=== PATIENT | female | born 1940 | race Caucasian/White ===

== ENCOUNTER 2018-01-16 09:49 | Emergency (ER) | payer MEDICARE ==
[2018-01-16] MEDS ORDERED: CLINDAMYCIN IM SCH (10:45)
[2018-01-16] MEDS ORDERED: Clindamycin/D5W 600 MG in Premix Bag 1 BAG IVPB SCH (10:45)
[2018-01-16] MEDS ORDERED: PRE FILLED IM SCH (10:45)
== END 2018-01-16 11:15 | disposition home or self-care (01) ==
LOC: ERS 09:49
DX: K04.7 Periapical abscess without sinus (principal); I25.2 Old myocardial infarction; Z87.891 Personal history of nicotine dependence; Z79.899 Other long term (current) drug therapy; Z79.82 Long term (current) use of aspirin
CPT/HCPCS: 96372; J3490

== ENCOUNTER 2020-11-19 09:35 | Outpatient (CLI) | payer MEDICARE | END 2020-11-19 09:36 | disposition home or self-care (01) | LOC: CT 09:35 | PROVIDERS: ATTEND Internal Medicine Cardiovascular Disease | DX: I71.4 Abdominal aortic aneurysm, without rupture (principal); R91.1 Solitary pulmonary nodule; K76.89 Other specified diseases of liver; K57.30 Diverticulosis of large intestine without perforation or abscess without bleeding | CPT/HCPCS: 71275; 74174; 82565 ==

== ENCOUNTER 2020-12-17 11:05 | Outpatient (CLI) | payer MEDICARE | END 2020-12-17 11:06 | disposition home or self-care (01) | LOC: PET 11:05 | PROVIDERS: ATTEND Internal Medicine | DX: R91.1 Solitary pulmonary nodule (principal); J43.9 Emphysema, unspecified | CPT/HCPCS: 78815; A9552 ==

== ENCOUNTER 2020-12-23 09:09 | Day surgery (SDC) | payer MEDICARE ==
[2020-12-22 14:06] VITALS: BMI 24.3
[2020-12-23] MEDS ORDERED: Fentanyl 100 MCG/2 ML VIAL ONE (11:14)
[2020-12-23] MEDS ORDERED: SUGAMMADEX SODIUM 200 MG/2 ML VIAL ONE (11:14)
[2020-12-23] MEDS ORDERED: Ondansetron PF 4 MG/2 ML Vial ONE (11:39)
[2020-12-23] MEDS ORDERED: Rocuronium Bromide 10 MG/ML (10ML VIAL) ONE (11:39)
[2020-12-23] MEDS ORDERED: Dexamethasone 20 MG/5 ML VIAL ONE (11:39)
[2020-12-23] MEDS ORDERED: PHENYLEPHRINE-NS 100 MCG/ML 10 ML SYRINGE ONE (11:39)
[2020-12-23] MEDS ORDERED: Lidocaine 1% PF 5 ML VIAL ONE (11:39)
[2020-12-23] MEDS ORDERED: PROPOFOL 200 MG/20 ML VIAL ONE (11:39)
== END 2020-12-23 14:35 | disposition home or self-care (01) ==
LOC: SDC 09:09
PROVIDERS: ATTEND Internal Medicine
PROC: 07D78ZX Extraction of Thorax Lymphatic, Via Natural or Artificial Opening Endoscopic, Diagnostic (ICD-10-PCS; principal; 2020-12-23)
DX: C7A.1 Malignant poorly differentiated neuroendocrine tumors (principal); R91.1 Solitary pulmonary nodule; J43.2 Centrilobular emphysema; Z87.891 Personal history of nicotine dependence; Z79.82 Long term (current) use of aspirin; Z79.899 Other long term (current) drug therapy; Z88.0 Allergy status to penicillin; Z91.013 Allergy to seafood
CPT/HCPCS: 88173; 88305; 88341; 88342; J1100; J2405; J2704; J3010

== ENCOUNTER 2021-01-05 11:25 | Outpatient (CLI) | payer MEDICARE ==
[~2021-01-05 11:25] MED LIST: Iopamidol 370 76% 100 ML VIAL ONE
== END 2021-01-05 11:26 | disposition home or self-care (01) ==
LOC: CT 11:25
PROVIDERS: ATTEND Internal Medicine Hematology & Oncology
DX: C79.51 Secondary malignant neoplasm of bone (principal); C34.81 Malignant neoplasm of overlapping sites of right bronchus and lung; Z79.899 Other long term (current) drug therapy
CPT/HCPCS: 70470; Q9967

== ENCOUNTER 2021-01-14 08:11 | Day surgery (SDC) | payer MEDICARE ==
[2021-01-12 13:02] VITALS: BMI 21.2
[2021-01-14] MEDS ORDERED: Lidocaine 1% w/Epinephrine 1:100K 20 ML VIAL ONE (10:27)
[2021-01-14] MEDS ORDERED: Bupivacaine 0.25% 10 ML VIAL ONE (10:27)
[2021-01-14] MEDS ORDERED: Levofloxacin 500 mg/D5W 100 ml Premix Bag ONE (10:47)
[2021-01-14] MEDS ORDERED: Fentanyl 100 MCG/2 ML VIAL ONE (10:55)
[2021-01-14] MEDS ORDERED: ePHEDrine 50 MG/ML VIAL ONE (11:21)
[2021-01-14] MEDS ORDERED: PROPOFOL 200 MG/20 ML VIAL ONE (11:21)
[2021-01-14] MEDS ORDERED: HYDROcodone/Acetaminophen 5/325 mg Tablet ONE (12:21)
== END 2021-01-14 12:54 | disposition home or self-care (01) ==
LOC: SDC 08:11
PROVIDERS: ATTEND Surgery
PROC: 0JH60WZ Insertion of Totally Implantable Vascular Access Device into Chest Subcutaneous Tissue and Fascia, Open Approach (ICD-10-PCS; principal; 2021-01-14)
PROC: 02HV33Z Insertion of Infusion Device into Superior Vena Cava, Percutaneous Approach (ICD-10-PCS; 2021-01-14)
DX: C34.90 Malignant neoplasm of unspecified part of unspecified bronchus or lung (principal); I25.2 Old myocardial infarction; J44.9 Chronic obstructive pulmonary disease, unspecified; Z79.82 Long term (current) use of aspirin; Z79.899 Other long term (current) drug therapy; Z88.0 Allergy status to penicillin; Z91.013 Allergy to seafood; Z95.5 Presence of coronary angioplasty implant and graft
CPT/HCPCS: 36561; 71045; C1788; J1642; J1956; J2704; J3010; J3490; S0020

== ENCOUNTER 2021-03-11 10:38 | Outpatient (CLI) | payer MEDICARE | END 2021-03-11 10:39 | disposition home or self-care (01) | LOC: PET 10:38 | PROVIDERS: ATTEND Internal Medicine Hematology & Oncology | DX: C34.81 Malignant neoplasm of overlapping sites of right bronchus and lung (principal); C79.51 Secondary malignant neoplasm of bone | CPT/HCPCS: 78815; A9552 ==

== ENCOUNTER 2021-03-25 09:31 | Day surgery (SDC) | payer MEDICARE ==
[2021-03-25] MEDS ORDERED: Sodium Chloride 0.9% 10 ML ONE ×2 (09:40→09:41)
[2021-03-25] MEDS ORDERED: diphenhydrAMINE 25 MG CAP ONE (09:41)
[2021-03-25] MEDS ORDERED: Acetaminophen 500 MG TAB ONE (09:41)
[2021-03-25] MEDS ORDERED: diphenhydrAMINE 25 MG CAP PO SCH (10:15)
[2021-03-25] MEDS ORDERED: Acetaminophen 500 MG TAB PO SCH (10:15)
[2021-03-25 16:09] VITALS: BP 130/63; TEMP 97.7
== END 2021-03-25 16:10 | disposition home or self-care (01) ==
LOC: ONC/OP 09:31
PROVIDERS: ATTEND Internal Medicine Hematology & Oncology
PROC: 30233N1 Transfusion of Nonautologous Red Blood Cells into Peripheral Vein, Percutaneous Approach (ICD-10-PCS; principal; 2021-03-25)
DX: D64.9 Anemia, unspecified (principal); D69.6 Thrombocytopenia, unspecified; Z88.0 Allergy status to penicillin; Z91.013 Allergy to seafood
CPT/HCPCS: 36430; 86850; 86900; 86901; J1642; P9016

== ENCOUNTER 2021-05-27 13:13 | Outpatient (CLI) | payer MEDICARE | END 2021-05-27 13:14 | disposition home or self-care (01) | LOC: BICULT 13:13 | PROVIDERS: ATTEND Internal Medicine Hematology & Oncology | DX: R07.89 Other chest pain (principal) ==

== ENCOUNTER 2021-06-29 10:35 | Observation (INO) | payer MEDICARE ==
[2021-06-29 11:10] LABS: Mean Corpuscular HGB CONC 34.4 g/dL (32.0-36.0); Mean Corpuscular Hemoglobin 35.7 pg (27.0-31.0); Mean Platelet Volume 8.2 fL (7.4-10.4); Platelet Count 167 thou/uL (130-400); RBC Distribution Width 15.5 % (11.5-14.5); Red Blood Cell (RBC) Count 3.35 mill/uL (4.20-5.40); White Blood Cell (WBC) Count 17.7 thou/uL (4.8-10.8)
[2021-06-29 11:27] LABS: Prothrombin Time 13.2 sec (12.0-14.7)
[2021-06-29 11:28] LABS: PTT 23.1 sec (22.9-36.1)
[2021-06-29 11:30] LABS: ALT (SGPT) 44 U/L (8-55); AST (SGOT) 31 U/L (5-34); Albumin 3.9 g/dL (3.4-4.8); Alkaline Phosphatase 196 U/L (40-110); Anion Gap 17 mmol/L (10-20); BUN (Urea Nitrogen) 22 mg/dL (9.8-20.1); Bilirubin, Total 0.6 mg/dL (0.2-1.2); Calc. Creatinine Clearance 0 mL/min (70-130); Calcium 9.7 mg/dL (7.8-10.44); Carbon Dioxide 24 mmol/L (23-31); Chloride 98 mmol/L (98-107); Globulin 3.6 g/dL (2.4-3.5); Glucose 106 mg/dL (83-110); Potassium 3.5 mmol/L (3.5-5.1); Protein, Total 7.5 g/dL (5.8-8.1); Sodium 135 mmol/L (136-145)
[2021-06-29 11:37] LABS: Band 21 % (5-11); Lymphocytes 9 % (21-51); MDiff Complete? YES; Metamyelocyte 1 % (0-0); Monocytes 5 % (0-10); Neutrophil 64 % (42-75); Platelet Morphology Comment Appears Adequate; Polychromasia SLIGHT = 2-3 cells (100X) (0-2/hpf); Toxic Granulation SLIGHT
[2021-06-29 11:54] LABS: Magnesium 1.4 mg/dL (1.6-2.6)
[2021-06-29 11:55] LABS: Lipase 32 U/L (8-78)
[2021-06-29 14:30] LABS: SARS-CoV-2 NAA Rapid Test Not Detected (NotDetected)
[2021-06-29] MEDS ORDERED: Iopamidol-370 76% 500 ML 1 ML ONE (15:17)
[2021-06-29 15:44] LABS: Troponin I 0.024 ng/mL (< 0.028)
[2021-06-29 16:05] VITALS: BMI 21.9
[2021-06-29] MEDS ORDERED: Acetaminophen 325 MG TAB PO PRN (16:15)
[2021-06-29] MEDS ORDERED: Ondansetron PF 4 MG/2 ML Vial IVP PRN (16:15)
[2021-06-29] MEDS ORDERED: Ondansetron ODT 4 MG TAB SL PRN (16:15)
[2021-06-29 18:21] LABS: Troponin I 0.026 ng/mL (< 0.028)
[2021-06-29] MEDS ORDERED: Promethazine HCl 12.5 MG in Sodium Chloride 0.9% 50 ML IVPB PRN (19:14)
[2021-06-29] MEDS: methylPREDNISolone Sod Succ 40 MG VIAL IVP SCH (23:57)
[2021-06-30] MEDS ORDERED: traZODone HCl 50 MG TAB PO SCH (02:00)
[2021-06-30] MEDS ORDERED: Melatonin 3 MG TAB PO PRN (02:53)
[2021-06-30] MEDS: methylPREDNISolone Sod Succ 40 MG VIAL IVP SCH ×2 (06:22→11:08)
[2021-06-30 17:28] VITALS: BP 115/63; TEMP 97.3
== END 2021-06-30 17:50 | disposition home or self-care (01) ==
LOC: ERS 10:35 → 2SW 14:15
PROVIDERS: ADMIT Hospitalist; ATTEND Hospitalist
DX: J44.1 Chronic obstructive pulmonary disease with (acute) exacerbation (principal); J96.01 Acute respiratory failure with hypoxia; C34.90 Malignant neoplasm of unspecified part of unspecified bronchus or lung; C78.7 Secondary malignant neoplasm of liver and intrahepatic bile duct; C79.51 Secondary malignant neoplasm of bone; I25.10 Atherosclerotic heart disease of native coronary artery without angina pectoris; I25.2 Old myocardial infarction; E78.00 Pure hypercholesterolemia, unspecified; Z87.891 Personal history of nicotine dependence; Z79.52 Long term (current) use of systemic steroids; Z79.82 Long term (current) use of aspirin; Z79.899 Other long term (current) drug therapy; Z88.0 Allergy status to penicillin; Z91.018 Allergy to other foods; Z20.822 Contact with and (suspected) exposure to COVID-19; C34.81 Malignant neoplasm of overlapping sites of right bronchus and lung
CPT/HCPCS: 71045; 71275; 80053 ×2; 83690; 83735; 83880; 84484 ×2; 85025; 85610; 85730; 86850; 86900; 86901; 93005; 94640; 94760; 99285; U0002; 36415; 96365; 96375; 96376; G0378; J1642; J1956; J2920; Q9967

== ENCOUNTER 2021-07-04 20:09 | Inpatient (IN) | payer MEDICARE ==
[2021-07-04] MEDS ORDERED: Cefepime 2 GM VIAL ONE (20:37)
[2021-07-04 21:20] LABS: #Eosinphils 0.1 thou/uL (0.0-0.7); #Lymphocytes 0.5 thou/uL (1.20-3.40); #Monocytes 0.7 thou/uL (0.11-0.59); #Neutrophils 11.4 thou/uL (1.40-6.50); %Basophils 0.3 % (0.0-1.0); %Eosinophils 0.5 % (0.0-10.0); %Monocytes 5.7 % (0.0-10.0); %Neutrophils 89.5 % (42.0-75.0); Hemoglobin 11.5 g/dL (12.0-16.0); Mean Corpuscular Hemoglobin 33.9 pg (27.0-31.0); Mean Platelet Volume 7.8 fL (7.4-10.4); Platelet Count 184 thou/uL (130-400); RBC Distribution Width 14.8 % (11.5-14.5); White Blood Cell (WBC) Count 12.7 thou/uL (4.8-10.8)
[2021-07-04] MEDS ORDERED: predniSONE 20 MG TAB ONE (21:35)
[2021-07-04 21:42] LABS: ALT (SGPT) 23 U/L (8-55); AST (SGOT) 34 U/L (5-34); Albumin 3.2 g/dL (3.4-4.8); Alkaline Phosphatase 135 U/L (40-110); Anion Gap 20 mmol/L (10-20); BUN (Urea Nitrogen) 29 mg/dL (9.8-20.1); Calc. Creatinine Clearance 0 mL/min (70-130); Carbon Dioxide 19 mmol/L (23-31); Chloride 95 mmol/L (98-107); Globulin 3.4 g/dL (2.4-3.5); Glucose 104 mg/dL (83-110); Potassium 3.3 mmol/L (3.5-5.1); Protein, Total 6.6 g/dL (5.8-8.1); Sodium 131 mmol/L (136-145)
[2021-07-04 21:43] LABS: Acetaminophen Less than 10.0 mcg/mL (10.0-30.0); Alcohol Less than 10 mg/dL (Less than 10); Salicylate Less than 8.0 mg/dL (15.0-30.0)
[2021-07-04 22:03] LABS: CKMB 0.4 ng/mL (0-6.6)
[2021-07-04 23:06] LABS: SARS-CoV-2 NAA Rapid Test Not Detected (NotDetected)
[2021-07-04] MEDS ORDERED: Vancomycin 1 GM/200 ML BAG ONE (23:35)
[2021-07-04 23:48] LABS: Amphetamine Not Detected (NotDetected); Barbiturates Screen Not Detected (NotDetected); Benzodiazepine Screen Not Detected (NotDetected); Cocaine Metabolite Screen Not Detected (NotDetected); Methadone Not Detected (NotDetected); Methamphetamine Not Detected (NotDetected); Opiate Screen Not Detected (NotDetected); Oxycodone Screen Not Detected (NotDetected); Phencyclidine (PCP) Not Detected (NotDetected); THC/Cannabinoid Screen Not Detected (NotDetected); Tricyclic Screen Not Detected (NotDetected)
[2021-07-05 00:04] LABS: Actual Bicarbonate (HCO3v) 17 mEq/L (22-28); Analyzer IN Cardio ER; Base Excess -5.9 mEq/L (-2.0 to +3.0); Calcium, Ionized (venous) 1.05 mmol/L (1.16-1.32); Chloride (VBG) 100 mmol/L (98-106); Hemoglobin (Hb) 10.7 g/dL (11.7-16.1); Potassium (VBG) 3.14 mmol/L (3.70-5.30); Sodium 128.1 mmol/L (133-146); pH (venous) 7.44 (7.32-7.43)
[2021-07-05 00:12] LABS: Lactic Acid 1.2 mmol/L (0.5-2.2)
[2021-07-05 00:21] LABS: Troponin I 0.048 ng/mL (< 0.028)
[2021-07-05] MEDS ORDERED: Acetaminophen 325 MG TAB PO PRN (01:11)
[2021-07-05] MEDS ORDERED: Ondansetron PF 4 MG/2 ML Vial IVP PRN (01:11)
[2021-07-05 01:17] LABS: Bacteria/HPF None Seen HPF (None Seen); Bilirubin Negative (Negative); Blood, Urine Negative (Negative); Clarity Clear (Clear); Glucose, Urine (Dipstick) Normal (Negative); Ketone, Urine 10 mg/dL (Negative); Leukocyte Negative Leu/uL (Negative); Nitrite Negative (Negative); Protein, Urine (Dipstick) 50 mg/dL (Neg-Trace); RBC/HPF 0-3 HPF (0-3); Specific Gravity, Urine 1.016 (1.002-1.036); Squamous Epithelial None Seen HPF (0-3); Urobilinogen Normal mg/dL (Less than 2); WBC/HPF 0-3 HPF (0-3); pH, Urine 5.5 (5.0-9.0)
[2021-07-05 01:19] LABS: Urine Culture Reflex No No
[2021-07-05] MEDS ORDERED: Sodium Chloride 0.9% 1,000 ML IV SCH (01:30)
[2021-07-05] MEDS ORDERED: Potassium Chloride 20 MEQ TAB PO SCH (01:30)
[2021-07-05 02:36] VITALS: BMI 22.0
[2021-07-05 03:47] LABS: SARS-CoV-2 NAA Rapid Test Not Detected (NotDetected)
[2021-07-05 04:07] LABS: #Lymphocytes 0.3 thou/uL (1.20-3.40); #Monocytes 0.2 thou/uL (0.11-0.59); #Neutrophils 9.6 thou/uL (1.40-6.50); %Basophils 0.2 % (0.0-1.0); %Eosinophils 0.4 % (0.0-10.0); %Lymphocytes 3.2 % (21.0-51.0); %Monocytes 1.6 % (0.0-10.0); %Neutrophils 94.6 % (42.0-75.0); Hemoglobin 10.2 g/dL (12.0-16.0); Mean Corpuscular HGB CONC 33.9 g/dL (32.0-36.0); Mean Corpuscular Hemoglobin 34.5 pg (27.0-31.0); Mean Platelet Volume 8.2 fL (7.4-10.4); Platelet Count 153 thou/uL (130-400); RBC Distribution Width 14.5 % (11.5-14.5); Red Blood Cell (RBC) Count 2.96 mill/uL (4.20-5.40); White Blood Cell (WBC) Count 10.2 thou/uL (4.8-10.8)
[2021-07-05 04:32] LABS: Anion Gap 15 mmol/L (10-20); BUN (Urea Nitrogen) 26 mg/dL (9.8-20.1); Calc. Creatinine Clearance 38 mL/min (70-130); Calcium 8.2 mg/dL (7.8-10.44); Carbon Dioxide 19 mmol/L (23-31); Chloride 101 mmol/L (98-107); Glucose 142 mg/dL (83-110); Magnesium 1.4 mg/dL (1.6-2.6); Potassium 3.3 mmol/L (3.5-5.1); Sodium 132 mmol/L (136-145)
[2021-07-05 04:35] LABS: Troponin I 0.047 ng/mL (< 0.028)
[2021-07-05] MEDS ORDERED: Ondansetron ODT 8 MG TAB PO PRN (07:13)
[2021-07-05] MEDS ORDERED: Magnesium Sulfate 2 GM in Sodium Chloride 0.9% 100 ML IVPB SCH (07:15)
[2021-07-05] MEDS ORDERED: Magnesium 2 GM/50 ML(in water) 2 GM in Premix Bag 1 BAG IVPB SCH (08:00)
[2021-07-05] MEDS: Aspirin Chewable 81 MG TAB PO SCH (08:59)
[2021-07-05] MEDS: Atorvastatin Calcium 40 MG TAB PO SCH (08:59)
[2021-07-05] MEDS: predniSONE 20 MG TAB PO SCH (08:59)
[2021-07-05] MEDS ORDERED: Non-Formulary Item 1 EACH (Prednisone [Prednisone] 10 MG Tablet) PO SCH (09:00)
[2021-07-05] MEDS: Loratadine 10 MG TAB PO SCH (09:00)
[2021-07-05] MEDS: Enoxaparin Sodium 40 MG/0.4 ML SYRINGE SC SCH (09:00)
[2021-07-05] MEDS: Cefepime 1 GM in Sodium Chloride 0.9% 100 ML IVPB SCH ×2 (11:15→21:20)
[2021-07-05 22:25] LABS: Vancomycin, Random 7.5 ug/mL (See Comment)
[2021-07-05] MEDS: Vancomycin HCl 750 MG in Sodium Chloride 0.9% 250 ML 250 ML IVPB SCH (23:46)
[2021-07-05] MEDS ORDERED: Vancomycin HCl 500 MG in Sodium Chloride 0.9% 100 ML IVPB SCH (23:59)
[2021-07-06] MEDS ORDERED: Amiodarone 150 MG, Admixture Fee 1 EACH in Dextrose 5% in Water 100 ML IVPB SCH (00:45)
[2021-07-06 01:01] LABS: Mean Corpuscular HGB CONC 32.1 g/dL (32.0-36.0); Mean Corpuscular Hemoglobin 32.9 pg (27.0-31.0); Mean Platelet Volume 7.7 fL (7.4-10.4); Platelet Count 179 thou/uL (130-400); RBC Distribution Width 14.5 % (11.5-14.5); Red Blood Cell (RBC) Count 3.03 mill/uL (4.20-5.40)
[2021-07-06] MEDS: Amiodarone 450 MG, Admixture Fee 1 EACH in Dextrose 5% in Water 250 ML IVPB SCH ×2 (01:19→08:00)
[2021-07-06 01:20] LABS: ALT (SGPT) 44 U/L (8-55); AST (SGOT) 53 U/L (5-34); Albumin 3.1 g/dL (3.4-4.8); Alkaline Phosphatase 165 U/L (40-110); Bilirubin, Direct 0.2 mg/dL (0.1-0.3); Magnesium 1.8 mg/dL (1.6-2.6); Protein, Total 6.2 g/dL (5.8-8.1)
[2021-07-06 01:25] LABS: Potassium 2.9 mmol/L (3.5-5.1)
[2021-07-06 01:33] LABS: Band 10 % (5-11); Burr Cells MODERATE= 6-15 cells (100X) (0-1/hpf); Lymphocytes 3 % (21-51); MDiff Complete? YES; Macrocytosis MODERATE=16-30 cells (100X) (0-5/hpf); Monocytes 1 % (0-10); Neutrophil 86 % (42-75); Platelet Morphology Comment Appears Adequate
[2021-07-06] MEDS ORDERED: Electrolyte Replacement Protocol FS PRN (01:45)
[2021-07-06] MEDS ORDERED: Magnesium 2 GM/50 ML(in water) 2 GM in Premix Bag 1 BAG IVPB SCH (02:00)
[2021-07-06] MEDS ORDERED: Potassium Chloride 20 MEQ TAB PO SCH (02:00)
[2021-07-06 02:03] LABS: Bilirubin, Total 0.4 mg/dL (0.2-1.2)
[2021-07-06] MEDS ORDERED: Potassium Chloride 40 MEQ in Premix Bag 1 BAG IVPB SCH (06:00)
[2021-07-06] MEDS: Levalbuterol HCl 1.25 MG/0.5 ML NEB NEB SCH ×5 (07:04→22:57)
[2021-07-06] MEDS: Enoxaparin Sodium 40 MG/0.4 ML SYRINGE SC SCH (07:59)
[2021-07-06] MEDS: predniSONE 20 MG TAB PO SCH (07:59)
[2021-07-06] MEDS: Atorvastatin Calcium 40 MG TAB PO SCH (07:59)
[2021-07-06] MEDS: Aspirin Chewable 81 MG TAB PO SCH (07:59)
[2021-07-06] MEDS: Loratadine 10 MG TAB PO SCH (08:01)
[2021-07-06] MEDS ORDERED: Digoxin 0.5 MG/2 ML AMP SLOW IVP SCH (09:00)
[2021-07-06] MEDS: Cefepime 1 GM in Sodium Chloride 0.9% 100 ML IVPB SCH ×2 (10:57→20:34)
[2021-07-06] MEDS ORDERED: Enoxaparin Sodium 60 MG/0.6 ML SYRINGE SC SCH (12:00)
[2021-07-06] MEDS: Amiodarone In Dextrose 360 MG in Premix Bag 1 BAG IVPB SCH (18:34)
[2021-07-06] MEDS: Enoxaparin Sodium 60 MG/0.6 ML SYRINGE SC SCH (20:33)
[2021-07-06] MEDS: Vancomycin HCl 750 MG in Sodium Chloride 0.9% 250 ML 250 ML IVPB SCH (21:35)
[2021-07-07] MEDS: Levalbuterol HCl 1.25 MG/0.5 ML NEB NEB SCH ×6 (01:46→23:05)
[2021-07-07] MEDS: Amiodarone In Dextrose 360 MG in Premix Bag 1 BAG IVPB SCH (04:00)
[2021-07-07 04:44] LABS: #Lymphocytes 0.4 thou/uL (1.20-3.40); #Monocytes 0.9 thou/uL (0.11-0.59); #Neutrophils 13.3 thou/uL (1.40-6.50); %Basophils 0.3 % (0.0-1.0); %Eosinophils 0.3 % (0.0-10.0); %Lymphocytes 2.5 % (21.0-51.0); %Monocytes 5.9 % (0.0-10.0); Hemoglobin 8.3 g/dL (12.0-16.0); Mean Corpuscular HGB CONC 32.9 g/dL (32.0-36.0); Mean Corpuscular Hemoglobin 32.9 pg (27.0-31.0); Mean Corpuscular Volume 99.8 fL (78.0-98.0); Mean Platelet Volume 7.8 fL (7.4-10.4); Platelet Count 160 thou/uL (130-400); RBC Distribution Width 14.6 % (11.5-14.5); Red Blood Cell (RBC) Count 2.52 mill/uL (4.20-5.40); White Blood Cell (WBC) Count 14.6 thou/uL (4.8-10.8)
[2021-07-07 05:25] LABS: Anion Gap 11 mmol/L (10-20); BUN (Urea Nitrogen) 18 mg/dL (9.8-20.1); Calc. Creatinine Clearance 39 mL/min (70-130); Calcium 8.2 mg/dL (7.8-10.44); Carbon Dioxide 23 mmol/L (23-31); Chloride 105 mmol/L (98-107); Glucose 145 mg/dL (83-110); Magnesium 1.7 mg/dL (1.6-2.6); Potassium 3.3 mmol/L (3.5-5.1); Sodium 136 mmol/L (136-145)
[2021-07-07] MEDS ORDERED: Magnesium 2 GM/50 ML(in water) 2 GM in Premix Bag 1 BAG IVPB SCH (08:00)
[2021-07-07] MEDS ORDERED: Potassium Chloride 20 MEQ TAB PO SCH (08:00)
[2021-07-07] MEDS: Aspirin Chewable 81 MG TAB PO SCH (09:26)
[2021-07-07] MEDS: Enoxaparin Sodium 60 MG/0.6 ML SYRINGE SC SCH ×2 (09:26→20:54)
[2021-07-07] MEDS: Atorvastatin Calcium 40 MG TAB PO SCH (09:26)
[2021-07-07] MEDS: Loratadine 10 MG TAB PO SCH (09:27)
[2021-07-07] MEDS: predniSONE 20 MG TAB PO SCH (09:27)
[2021-07-07] MEDS: Cefepime 1 GM in Sodium Chloride 0.9% 100 ML IVPB SCH ×2 (09:29→20:54)
[2021-07-07] MEDS ORDERED: Amiodarone 200 MG TAB PO SCH (09:45)
[2021-07-07] MEDS: Amiodarone 200 MG TAB PO SCH (20:53)
[2021-07-07 22:22] LABS: Vancomycin, Trough 9.2 ug/mL
[2021-07-07] MEDS: Vancomycin HCl 750 MG in Sodium Chloride 0.9% 250 ML 250 ML IVPB SCH (23:30)
[2021-07-07] MEDS ORDERED: Vancomycin 1 GM in Premix Bag 1 BAG IVPB SCH (23:59)
[2021-07-08] MEDS: Levalbuterol HCl 1.25 MG/0.5 ML NEB NEB SCH ×6 (02:54→23:10)
[2021-07-08] MEDS: Amiodarone 200 MG TAB PO SCH ×2 (09:23→21:37)
[2021-07-08] MEDS: Atorvastatin Calcium 40 MG TAB PO SCH (09:23)
[2021-07-08] MEDS: Aspirin Chewable 81 MG TAB PO SCH (09:23)
[2021-07-08] MEDS: Enoxaparin Sodium 60 MG/0.6 ML SYRINGE SC SCH (09:23)
[2021-07-08] MEDS: Loratadine 10 MG TAB PO SCH (09:24)
[2021-07-08] MEDS: Cefepime 1 GM in Sodium Chloride 0.9% 100 ML IVPB SCH ×2 (09:24→21:37)
[2021-07-08] MEDS: predniSONE 20 MG TAB PO SCH (09:24)
[2021-07-08 11:34] LABS: Eosinophils 1 % (0-10); Hemoglobin 8.8 g/dL (12.0-16.0); Lymphocytes 6 % (21-51); MDiff Complete? YES; Mean Corpuscular HGB CONC 33.4 g/dL (32.0-36.0); Mean Corpuscular Hemoglobin 33.1 pg (27.0-31.0); Mean Corpuscular Volume 99.3 fL (78.0-98.0); Mean Platelet Volume 7.9 fL (7.4-10.4); Monocytes 9 % (0-10); Neutrophil 84 % (42-75); Platelet Count 177 thou/uL (130-400); Platelet Morphology Comment Appears Adequate; RBC Distribution Width 15.1 % (11.5-14.5); Red Blood Cell (RBC) Count 2.65 mill/uL (4.20-5.40); White Blood Cell (WBC) Count 14.7 thou/uL (4.8-10.8)
[2021-07-08] MEDS ORDERED: Sodium Chloride For Inhalation 0.9% 3 ML NEB ONE (14:10)
[2021-07-08] MEDS ORDERED: Apixaban 5 MG TAB PO SCH (21:00)
[2021-07-09] MEDS: Levalbuterol HCl 1.25 MG/0.5 ML NEB NEB SCH ×6 (02:18→23:37)
[2021-07-09] MEDS: Cefepime 1 GM in Sodium Chloride 0.9% 100 ML IVPB SCH (09:26)
[2021-07-09] MEDS: Loratadine 10 MG TAB PO SCH (09:27)
[2021-07-09] MEDS: predniSONE 20 MG TAB PO SCH (09:27)
[2021-07-09] MEDS: Apixaban 2.5 MG TAB PO SCH ×2 (09:27→21:16)
[2021-07-09] MEDS: Atorvastatin Calcium 40 MG TAB PO SCH (09:27)
[2021-07-09] MEDS: Amiodarone 200 MG TAB PO SCH ×2 (09:27→21:15)
[2021-07-09] MEDS ORDERED: Loperamide HCl 2 MG CAP PO PRN (12:11)
[2021-07-09] MEDS ORDERED: Loperamide HCl 2 MG CAP PO SCH (12:15)
[2021-07-09] MEDS ORDERED: Saccharomyces boulardii 250 MG CAP PO SCH (16:00)
[2021-07-09] MEDS: Vancomycin 25 MG/ML Oral SOLN PO SCH (18:16)
[2021-07-09] MEDS ORDERED: Sodium Chloride For Inhalation 0.9% 3 ML NEB ONE (19:26)
[2021-07-10] MEDS: Vancomycin 25 MG/ML Oral SOLN PO SCH ×5 (00:45→23:17)
[2021-07-10] MEDS: Levalbuterol HCl 1.25 MG/0.5 ML NEB NEB SCH ×3 (03:40→10:51)
[2021-07-10 08:06] LABS: Anion Gap 14 mmol/L (10-20); BUN (Urea Nitrogen) 17 mg/dL (9.8-20.1); Calc. Creatinine Clearance 44 mL/min (70-130); Calcium 7.5 mg/dL (7.8-10.44); Carbon Dioxide 23 mmol/L (23-31); Chloride 100 mmol/L (98-107); Glucose 63 mg/dL (83-110); Potassium 3.1 mmol/L (3.5-5.1); Sodium 134 mmol/L (136-145)
[2021-07-10] MEDS: Atorvastatin Calcium 40 MG TAB PO SCH (08:15)
[2021-07-10] MEDS: Amiodarone 200 MG TAB PO SCH ×2 (08:16→20:41)
[2021-07-10] MEDS: predniSONE 20 MG TAB PO SCH (08:16)
[2021-07-10] MEDS: Loratadine 10 MG TAB PO SCH (08:16)
[2021-07-10] MEDS: Apixaban 2.5 MG TAB PO SCH ×2 (08:17→20:41)
[2021-07-10] MEDS: Saccharomyces boulardii 250 MG CAP PO SCH (08:17)
[2021-07-10 08:19] LABS: Band 16 % (5-11); Lymphocytes 5 % (21-51); MDiff Complete? YES; Macrocytosis SLIGHT = 6-15 cells (100X) (0-5/hpf); Mean Corpuscular HGB CONC 32.4 g/dL (32.0-36.0); Mean Corpuscular Hemoglobin 33.7 pg (27.0-31.0); Mean Platelet Volume 7.8 fL (7.4-10.4); Metamyelocyte 1 % (0-0); Monocytes 4 % (0-10); Myelocyte 1 % (0-0); Neutrophil 72 % (42-75); Ovalocytes SLIGHT = 2-5 cells (100X) (0-1/hpf); Platelet Count 170 thou/uL (130-400); Platelet Morphology Comment Appears Adequate; Polychromasia MODERATE = 3-4 cells (100X) (0-2/hpf); RBC Distribution Width 14.9 % (11.5-14.5); Reactive Lymphocytes 1 % (0-10); Red Blood Cell (RBC) Count 2.96 mill/uL (4.20-5.40); Schistocytes SLIGHT = 2-5 cells (100X) (0-1/hpf)
[2021-07-10] MEDS ORDERED: Levalbuterol HCl 1.25 MG/0.5 ML NEB NEB PRN (10:51)
[2021-07-10] MEDS ORDERED: Potassium Chloride 20 MEQ TAB PO SCH (13:00)
[2021-07-11] MEDS: Vancomycin 25 MG/ML Oral SOLN PO SCH ×3 (05:22→18:02)
[2021-07-11 06:49] LABS: Anion Gap 16 mmol/L (10-20); BUN (Urea Nitrogen) 19 mg/dL (9.8-20.1); Calc. Creatinine Clearance 47 mL/min (70-130); Calcium 7.4 mg/dL (7.8-10.44); Carbon Dioxide 21 mmol/L (23-31); Chloride 104 mmol/L (98-107); Glucose 65 mg/dL (83-110); Magnesium 1.6 mg/dL (1.6-2.6); Sodium 137 mmol/L (136-145)
[2021-07-11 07:20] LABS: Band 12 % (5-11); Hemoglobin 9.4 g/dL (12.0-16.0); Lymphocytes 10 % (21-51); MDiff Complete? YES; Mean Corpuscular HGB CONC 31.8 g/dL (32.0-36.0); Mean Corpuscular Hemoglobin 32.9 pg (27.0-31.0); Mean Platelet Volume 8.2 fL (7.4-10.4); Monocytes 9 % (0-10); Neutrophil 69 % (42-75); Platelet Count 184 thou/uL (130-400); Red Blood Cell (RBC) Count 2.85 mill/uL (4.20-5.40); White Blood Cell (WBC) Count 13.7 thou/uL (4.8-10.8)
[2021-07-11] MEDS: Apixaban 2.5 MG TAB PO SCH ×2 (08:31→20:41)
[2021-07-11] MEDS: Atorvastatin Calcium 40 MG TAB PO SCH (08:31)
[2021-07-11] MEDS: predniSONE 20 MG TAB PO SCH (08:31)
[2021-07-11] MEDS: Saccharomyces boulardii 250 MG CAP PO SCH (08:31)
[2021-07-11] MEDS: Amiodarone 200 MG TAB PO SCH ×2 (08:31→20:41)
[2021-07-11] MEDS: Loratadine 10 MG TAB PO SCH (08:31)
[2021-07-11] MEDS ORDERED: Magnesium 2 GM/50 ML(in water) 2 GM in Premix Bag 1 BAG IVPB SCH (09:00)
[2021-07-12] MEDS: Vancomycin 25 MG/ML Oral SOLN PO SCH ×4 (00:45→17:34)
[2021-07-12] MEDS: predniSONE 20 MG TAB PO SCH (08:50)
[2021-07-12] MEDS: Saccharomyces boulardii 250 MG CAP PO SCH (08:50)
[2021-07-12] MEDS: Atorvastatin Calcium 40 MG TAB PO SCH (08:51)
[2021-07-12] MEDS: Loratadine 10 MG TAB PO SCH (08:51)
[2021-07-12] MEDS: Amiodarone 200 MG TAB PO SCH ×2 (08:51→21:09)
[2021-07-12] MEDS: Apixaban 2.5 MG TAB PO SCH ×2 (08:51→21:09)
[2021-07-13] MEDS: Vancomycin 25 MG/ML Oral SOLN PO SCH ×4 (00:23→17:01)
[2021-07-13 08:15] LABS: Mean Corpuscular HGB CONC 32.1 g/dL (32.0-36.0); Mean Corpuscular Hemoglobin 33.4 pg (27.0-31.0); Mean Platelet Volume 9.3 fL (7.4-10.4); Platelet Count 154 thou/uL (130-400); Red Blood Cell (RBC) Count 2.99 mill/uL (4.20-5.40); White Blood Cell (WBC) Count 10.6 thou/uL (4.8-10.8)
[2021-07-13] MEDS: Atorvastatin Calcium 40 MG TAB PO SCH (08:28)
[2021-07-13] MEDS: Saccharomyces boulardii 250 MG CAP PO SCH (08:28)
[2021-07-13] MEDS: predniSONE 20 MG TAB PO SCH (08:28)
[2021-07-13] MEDS: Apixaban 2.5 MG TAB PO SCH ×2 (08:28→21:27)
[2021-07-13] MEDS: Amiodarone 200 MG TAB PO SCH ×2 (08:28→21:27)
[2021-07-13] MEDS: Loratadine 10 MG TAB PO SCH (08:28)
[2021-07-13 08:39] LABS: Anion Gap 12 mmol/L (10-20); BUN (Urea Nitrogen) 14 mg/dL (9.8-20.1); Calc. Creatinine Clearance 51 mL/min (70-130); Calcium 7.6 mg/dL (7.8-10.44); Carbon Dioxide 21 mmol/L (23-31); Chloride 104 mmol/L (98-107); Glucose 64 mg/dL (83-110); Potassium 4.4 mmol/L (3.5-5.1); Sodium 133 mmol/L (136-145)
[2021-07-13 09:10] LABS: Band 9 % (5-11); Lymphocytes 5 % (21-51); Metamyelocyte 1 % (0-0); Monocytes 6 % (0-10); Myelocyte 1 % (0-0); Neutrophil 78 % (42-75); Nucleated RBC 1 % (0)
[2021-07-13 09:11] LABS: Burr Cells SLIGHT = 2-5 cells (100X) (0-1/hpf); Platelet Morphology Comment Appears Adequate; Polychromasia SLIGHT = 2-3 cells (100X) (0-2/hpf)
[2021-07-13 09:12] LABS: MDiff Complete? YES
[2021-07-14] MEDS: Vancomycin 25 MG/ML Oral SOLN PO SCH ×4 (01:18→17:18)
[2021-07-14] MEDS: Atorvastatin Calcium 40 MG TAB PO SCH (08:30)
[2021-07-14] MEDS: predniSONE 20 MG TAB PO SCH (08:30)
[2021-07-14] MEDS: Loratadine 10 MG TAB PO SCH (08:30)
[2021-07-14] MEDS: Saccharomyces boulardii 250 MG CAP PO SCH (08:30)
[2021-07-14] MEDS: Amiodarone 200 MG TAB PO SCH ×2 (08:30→21:09)
[2021-07-14] MEDS: Apixaban 2.5 MG TAB PO SCH ×2 (08:34→21:09)
[2021-07-14] MEDS ORDERED: Sodium Chloride 0.65% Nasal 44 ML BOT EA NARE PRN (19:44)
[2021-07-15] MEDS: Vancomycin 25 MG/ML Oral SOLN PO SCH ×5 (00:09→23:44)
[2021-07-15] MEDS: Apixaban 2.5 MG TAB PO SCH ×2 (08:09→21:37)
[2021-07-15] MEDS: Amiodarone 200 MG TAB PO SCH ×2 (08:09→21:37)
[2021-07-15] MEDS: Loratadine 10 MG TAB PO SCH (08:09)
[2021-07-15] MEDS: predniSONE 20 MG TAB PO SCH (08:09)
[2021-07-15] MEDS: Atorvastatin Calcium 40 MG TAB PO SCH (08:09)
[2021-07-15] MEDS: Saccharomyces boulardii 250 MG CAP PO SCH (08:09)
[2021-07-15] MEDS ORDERED: Furosemide 20 MG/2 ML VIAL SLOW IVP SCH (10:00)
[2021-07-15] MEDS ORDERED: Furosemide 40 MG/4 ML VIAL SLOW IVP SCH (15:09)
[2021-07-16] MEDS: Vancomycin 25 MG/ML Oral SOLN PO SCH ×4 (06:37→23:45)
[2021-07-16] MEDS: Saccharomyces boulardii 250 MG CAP PO SCH (08:54)
[2021-07-16] MEDS: Amiodarone 200 MG TAB PO SCH ×2 (08:55→21:05)
[2021-07-16] MEDS: predniSONE 20 MG TAB PO SCH (08:55)
[2021-07-16] MEDS: Apixaban 2.5 MG TAB PO SCH ×2 (08:55→21:04)
[2021-07-16] MEDS: Atorvastatin Calcium 40 MG TAB PO SCH (08:55)
[2021-07-16] MEDS: Loratadine 10 MG TAB PO SCH (08:55)
[2021-07-16] MEDS ORDERED: Iopamidol-370 76% 500 ML 1 ML ONE (11:11)
[2021-07-17] MEDS: Vancomycin 25 MG/ML Oral SOLN PO SCH ×2 (06:27→13:01)
[2021-07-17] MEDS ORDERED: Furosemide 40 MG TAB PO SCH (07:30)
[2021-07-17] MEDS: Apixaban 2.5 MG TAB PO SCH (08:17)
[2021-07-17] MEDS: Amiodarone 200 MG TAB PO SCH (08:18)
[2021-07-17] MEDS: Loratadine 10 MG TAB PO SCH (08:18)
[2021-07-17] MEDS: predniSONE 20 MG TAB PO SCH (08:18)
[2021-07-17] MEDS: Atorvastatin Calcium 40 MG TAB PO SCH (08:18)
[2021-07-17] MEDS: Saccharomyces boulardii 250 MG CAP PO SCH (08:18)
[2021-07-17 08:28] VITALS: BP 109/65; TEMP 97.2
[2021-07-17 10:19] LABS: #Lymphocytes 0.6 thou/uL (1.20-3.40); #Monocytes 0.5 thou/uL (0.11-0.59); #Neutrophils 10.4 thou/uL (1.40-6.50); %Basophils 0.1 % (0.0-1.0); %Eosinophils 0.4 % (0.0-10.0); %Lymphocytes 5.5 % (21.0-51.0); %Monocytes 4.3 % (0.0-10.0); %Neutrophils 89.7 % (42.0-75.0); Mean Corpuscular HGB CONC 31.8 g/dL (32.0-36.0); Mean Corpuscular Hemoglobin 32.8 pg (27.0-31.0); Mean Platelet Volume 8.2 fL (7.4-10.4); Platelet Count 168 thou/uL (130-400); RBC Distribution Width 15.1 % (11.5-14.5); Red Blood Cell (RBC) Count 3.05 mill/uL (4.20-5.40); White Blood Cell (WBC) Count 11.5 thou/uL (4.8-10.8)
[2021-07-17 10:43] LABS: Anion Gap 15 mmol/L (10-20); BUN (Urea Nitrogen) 21 mg/dL (9.8-20.1); Calc. Creatinine Clearance 40 mL/min (70-130); Calcium 7.7 mg/dL (7.8-10.44); Carbon Dioxide 27 mmol/L (23-31); Chloride 94 mmol/L (98-107); Glucose 141 mg/dL (83-110); Sodium 133 mmol/L (136-145)
[2021-07-17] MEDS ORDERED: Potassium Chloride 20 MEQ TAB PO SCH ×2 (11:00→15:15)
== END 2021-07-17 17:20 | disposition hospice, home (50) | DRG 871 ==
LOC: ERS 20:09 → 2SW 23:39 → T4-B 07-09 11:09
PROVIDERS: ADMIT Internal Medicine; ATTEND Family Medicine
DX: A41.9 Sepsis, unspecified organism (principal); G93.41 Metabolic encephalopathy; J96.21 Acute and chronic respiratory failure with hypoxia; I26.93 Single subsegmental thrombotic pulmonary embolism without acute cor pulmonale; A04.72 Enterocolitis due to Clostridium difficile, not specified as recurrent; N17.9 Acute kidney failure, unspecified; E87.1 Hypo-osmolality and hyponatremia; C78.7 Secondary malignant neoplasm of liver and intrahepatic bile duct; C79.51 Secondary malignant neoplasm of bone; I42.9 Cardiomyopathy, unspecified; J90 Pleural effusion, not elsewhere classified; E87.2 Acidosis; C34.91 Malignant neoplasm of unspecified part of right bronchus or lung; D64.9 Anemia, unspecified; Z66 Do not resuscitate; E78.5 Hyperlipidemia, unspecified; I10 Essential (primary) hypertension; I48.0 Paroxysmal atrial fibrillation; R53.81 Other malaise; E87.6 Hypokalemia; E78.00 Pure hypercholesterolemia, unspecified; R79.89 Other specified abnormal findings of blood chemistry; J43.9 Emphysema, unspecified; I95.9 Hypotension, unspecified; I25.10 Atherosclerotic heart disease of native coronary artery without angina pectoris; Z20.822 Contact with and (suspected) exposure to COVID-19; Z51.5 Encounter for palliative care; Z88.0 Allergy status to penicillin; Z91.013 Allergy to seafood; Z99.81 Dependence on supplemental oxygen; Z79.82 Long term (current) use of aspirin; Z90.710 Acquired absence of both cervix and uterus; Z79.899 Other long term (current) drug therapy; Z98.51 Tubal ligation status; Z87.891 Personal history of nicotine dependence; Z80.1 Family history of malignant neoplasm of trachea, bronchus and lung; Z80.49 Family history of malignant neoplasm of other genital organs; Z92.21 Personal history of antineoplastic chemotherapy; Z95.5 Presence of coronary angioplasty implant and graft
CPT/HCPCS: 36415; 36416; 51701; 70450; 71045; 71275; 80048; 80053; 80076; 80202; 80306; 80307; 81001; 82553; 82805; 83605; 83735; 84439; 84443; 84484; 85025; 86850; 86900; 86901; 87086; 87324; 87449; 93005; 93010; 94640; 96365; 96366; 96367; J0282; J0692; J1160; J1642; J1650; J1940; J3370; J3475; J3480; J3490; J7050; J7070; J7512; J7612; J7620; Q9967; U0002; U0003; U0005